=== PATIENT | female | born 1970 | race Caucasian/White ===

== ENCOUNTER → 2024-05-04 09:57 | Outpatient (REF) | payer BC, SELFPAY | LOC: RAD 09:57 | PROVIDERS: ATTENDING PHYSICIAN Internal Medicine Hematology & Oncology; FAMILY PHYSICIAN Family Medicine | DX: D47.2 Monoclonal gammopathy (principal) | CPT/HCPCS: 77075 ==

== ENCOUNTER → 2025-01-24 13:22 | Outpatient (REF) | payer BC, SELFPAY | LOC: HWRAD 13:22 | PROVIDERS: ATTENDING PHYSICIAN Internal Medicine Endocrinology, Diabetes & Metabolism; FAMILY PHYSICIAN Family Medicine | DX: M81.0 Age-related osteoporosis without current pathological fracture (principal) | CPT/HCPCS: 77080 ==